=== PATIENT | female | born 1995 | race Caucasian/White ===

== ENCOUNTER 2020-04-12 11:02 | Emergency (ER) | payer SELFPAY ==
[~2020-04-12] VITALS: Ht 167.6 cm; Wt 90.7 kg
[2020-04-12] MEDS ORDERED: KETOROLAC TROMETHAMINE 30 MG/ML VIAL IV STA (11:21)
[2020-04-12] MEDS ORDERED: ONDANSETRON HCL INJ 2MG/ML 2ML 2 MG/ML VIAL IV STA (11:21)
[2020-04-12] MEDS ORDERED: KETOROLAC TROMETHAMINE 30 MG/ML VIAL ONE (12:38)
[2020-04-12] MEDS ORDERED: ONDANSETRON HCL INJ 2MG/ML 2ML 2 MG/ML VIAL ONE (12:38)
== END 2020-04-12 12:46 | disposition home or self-care (01) ==
LOC: FSED 11:25
DX: R10.11 Right upper quadrant pain (principal); K80.80 Other cholelithiasis without obstruction; K21.9 Gastro-esophageal reflux disease without esophagitis
CPT/HCPCS: 74176; 80048; 80076; 85025; 99284; J1885; J2405

== ENCOUNTER 2021-04-15 14:44 | Emergency (ER) | payer MEDICARE, OTHER ==
[~2021-04-15] VITALS: Ht 167.6 cm; Wt 99.8 kg
[2021-04-15] MEDS ORDERED: KETOROLAC TROMETHAMINE 60 MG/2 ML VIAL IM ONE (15:30)
[2021-04-15] MEDS ORDERED: KETOROLAC TROMETHAMINE 60 MG/2 ML VIAL ONE (16:01)
[2021-04-15] MEDS ORDERED: PREDNISONE 20 MG TAB PO NR (16:19)
[2021-04-15] MEDS ORDERED: Morphine 4mg Syringe 4 MG/ML INJ IM STA (16:19)
[2021-04-15] MEDS ORDERED: PREDNISONE 20 MG TAB ONE (16:43)
[2021-04-15] MEDS ORDERED: Morphine 4mg Syringe 4 MG/ML INJ ONE (16:44)
[2021-04-15] MEDS ORDERED: ULTRAM 50MG50 MG PO (16:58)
[2021-04-15] MEDS ORDERED: PREDNISONE20 MG PO (17:00)
== END 2021-04-15 17:11 | disposition home or self-care (01) ==
LOC: FSED 14:49
DX: M54.42 Lumbago with sciatica, left side (principal)
CPT/HCPCS: 72100; 81003; 81025; 96372; 99283; J1885; J2270; J7512

== ENCOUNTER 2021-04-19 14:15 | Emergency (ER) | payer OTHER ==
[~2021-04-19] VITALS: Ht 167.6 cm; Wt 99.8 kg
[~2021-04-19 14:15] MED LIST: PREDNISONE20 MG PO; ULTRAM 50MG50 MG PO
[2021-04-19] MEDS ORDERED: HYDROCODONE/APAP 5MG-325MG TAB PO ONE (14:30)
[2021-04-19] MEDS ORDERED: DEXAMETHASONE SOD PHOS 10 MG/1 ML VIAL IV ONE (14:30)
[2021-04-19] MEDS ORDERED: ONDANSETRON HCL 4 MG ORAL DISINTEGRATING TAB PO ONE (14:30)
[2021-04-19] MEDS ORDERED: ACETAMINOPHEN500 MG PO (14:38)
[2021-04-19] MEDS ORDERED: ZANAFLEX4 MG PO (14:38)
[2021-04-19] MEDS ORDERED: IBUPROFEN IB200 MG PO (14:38)
[2021-04-19] MEDS ORDERED: PREDNISONE 20 MG TAB PO ONE (14:45)
[2021-04-19] MEDS ORDERED: PREDNISONE 20 MG TAB ONE (14:46)
[2021-04-19] MEDS ORDERED: ONDANSETRON HCL 4 MG ORAL DISINTEGRATING TAB ONE (14:46)
[2021-04-19] MEDS ORDERED: IBUPROFEN 600 MG TAB ONE (14:47)
[2021-04-19] MEDS ORDERED: HYDROCODONE/APAP 5MG-325MG TAB ONE (14:47)
[2021-04-19] MEDS ORDERED: IBUPROFEN 600 MG TAB PO ONE (15:00)
== END 2021-04-19 14:52 | disposition home or self-care (01) ==
LOC: FSED 14:25
DX: M54.42 Lumbago with sciatica, left side (principal); M54.41 Lumbago with sciatica, right side; I10 Essential (primary) hypertension
CPT/HCPCS: 99283; J7512; Q0162; J1100

== ENCOUNTER 2021-06-08 04:41 | Emergency (ER) | payer OTHER ==
[~2021-06-08] VITALS: Ht 167.6 cm; Wt 99.8 kg
[~2021-06-08 04:41] MED LIST changes: +ACETAMINOPHEN500 MG PO; +IBUPROFEN IB200 MG PO; +ZANAFLEX4 MG PO
[2021-06-08] MEDS ORDERED: ACETAMINOPHEN 325 MG TAB PO ONE (05:45)
[2021-06-08] MEDS ORDERED: ONDANSETRON HCL 4 MG ORAL DISINTEGRATING TAB PO ONE (05:45)
[2021-06-08] MEDS ORDERED: TAMIFLU75 MG PO (05:51)
[2021-06-08] MEDS ORDERED: ACETAMINOPHEN 325 MG TAB ONE (06:00)
[2021-06-08] MEDS ORDERED: ONDANSETRON HCL 4 MG ORAL DISINTEGRATING TAB ONE (06:00)
== END 2021-06-08 06:04 | disposition home or self-care (01) ==
LOC: FSED 05:35
DX: J10.1 Influenza due to other identified influenza virus with other respiratory manifestations (principal); I10 Essential (primary) hypertension; Z88.6 Allergy status to analgesic agent; Z91.040 Latex allergy status
CPT/HCPCS: 81003; 81025; 83518; 87400; 99283; Q0162